=== PATIENT | female | born 1995 | race Caucasian/White ===

== ENCOUNTER 2018-12-03 14:21 | Emergency (ER) | payer MEDICAID ==
[~2018-12-03] VITALS: Ht 154.9 cm; Wt 93.2 kg
[2018-12-03 14:35] VITALS: Ht 154.9 cm; Wt 93.2 kg
[2018-12-03] MEDS ORDERED: CLEOCIN HCL300 MG PO (15:47)
[2018-12-03 16:47] VITALS: BP 149/74
== END 2018-12-03 16:47 | disposition home or self-care (01) ==
LOC: D.ER 14:21
DX: L73.2 Hidradenitis suppurativa (principal)

== ENCOUNTER 2019-01-13 15:10 | Emergency (ER) | payer MEDICAID ==
[~2019-01-13] VITALS: Ht 154.9 cm; Wt 98.6 kg
[~2019-01-13 15:10] MED LIST: CLEOCIN HCL300 MG PO
[2019-01-13 15:11] VITALS: Ht 154.9 cm; Wt 98.6 kg
[2019-01-13] MEDS ORDERED: CATAPRES0.1 MG PO (15:12)
[2019-01-13] MEDS ORDERED: ZOLOFT50 MG PO (15:12)
[2019-01-13] MEDS ORDERED: TRILEPTAL600 MG PO (15:12)
[2019-01-13 15:51] LABS: BASOPHILS 0.3 % (0-2); EOSINOPHILS 2.8 % (0-7); HEMATOCRIT 44.6 % (36.0-48.0); HEMOGLOBIN 14.9 g/dL (12-16); IMMATURE GRANULOCYTES 0.4 % (0-5); MCH 30.3 pg (26.0-34.0); MCHC 33.4 g/dL (31.0-37.0); MCV 90.7 fL (80.0-100.0); MEAN PLATELET VOLUME 10.4 fL (7.4-10.4); MONOCYTES 5.4 % (2-11); NEUTROPHILS 72.1 % (40-80); PLATELET COUNT 254 10x3/uL (130-400); RBC 4.92 10x6/uL (4.00-5.40); RDW 14.2 % (11.5-14.5); WBC 11.5 10x3/uL (4.8-10.8)
[2019-01-13 16:03] LABS: ALKALINE PHOSPHATASE 89 U/L (46-116); ALT (SGPT) 28 U/L (10-68); BILIRUBIN - TOTAL 0.18 mg/dL (0.2-1.3); CALC OSMOLALITY 275 mosm/kg (275-300); CALCIUM 8.5 mg/dL (8.5-10.1); CARBON DIOXIDE 27.9 mmol/L (21.0-32.0); CHLORIDE - SERUM 104 mmol/L (98-107); CREATININE - SERUM 0.9 mg/dL (0.6-1.3); GLUCOSE 113 mg/dL (74-106); POTASSIUM - SERUM 4.4 mmol/L (3.5-5.1); PROTEIN - SERUM 6.4 g/dL (6.4-8.2); SODIUM 138 mmol/L (136-145); UREA NITROGEN 11 mg/dL (7-18); eGFR NON AFRICAN AMERICAN 84 mL/min (90-120)
[2019-01-13 17:20] LABS: HCG URINE NEGATIVE (NEGATIVE)
[2019-01-13 17:26] LABS: APPEARANCE HAZY (CLEAR); BACTERIA MODERATE /hpf (NONE SEEN); BILIRUBIN NEGATIVE (NEGATIVE); COLOR YELLOW (YELLOW); EPITHELIAL CELLS 0-5 /hpf (0-5); GLUCOSE NEGATIVE (NEGATIVE); KETONE NEGATIVE (NEGATIVE); MUCUS >1+ /lpf (NONE SEEN); NITRITE NEGATIVE (NEGATIVE); PROTEIN NEGATIVE (NEGATIVE); SPECIFIC GRAVITY 1.025 (1.005-1.020); UROBILINOGEN NORMAL (NORMAL); WHITE CELLS - URINE 0-5 /hpf (0-5)
[2019-01-13 17:27] LABS: AMORPHOUS SEDIMENT >1+ /lpf (NONE SEEN)
[2019-01-13 18:25] VITALS: BP 115/86
== END 2019-01-13 18:26 | disposition home or self-care (01) ==
LOC: D.ER 15:10
PROVIDERS: Family Medicine
DX: R55 Syncope and collapse (principal)

== ENCOUNTER 2019-01-21 16:52 | Emergency (ER) | payer MEDICAID ==
[~2019-01-21] VITALS: Ht 154.9 cm; Wt 98.4 kg
[~2019-01-21 16:52] MED LIST changes: +CATAPRES0.1 MG PO; +TRILEPTAL600 MG PO; +ZOLOFT50 MG PO
[2019-01-21 17:00] VITALS: Ht 154.9 cm; Wt 98.4 kg
[2019-01-21] MEDS ORDERED: LISINOPRIL10 MG PO (17:03)
[2019-01-21] MEDS ORDERED: IMITREX50 MG PO (18:11)
[2019-01-21 18:24] LABS: BASOPHILS 0.5 % (0-2); EOSINOPHILS 4.6 % (0-7); HEMATOCRIT 38.6 % (36.0-48.0); HEMOGLOBIN 12.9 g/dL (12-16); IMMATURE GRANULOCYTES 0.2 % (0-5); LYMPHOCYTES 27.1 % (15-50); MCH 30.1 pg (26.0-34.0); MCHC 33.4 g/dL (31.0-37.0); MEAN PLATELET VOLUME 10.3 fL (7.4-10.4); MONOCYTES 5.9 % (2-11); NEUTROPHILS 61.7 % (40-80); PLATELET COUNT 285 10x3/uL (130-400); RBC 4.29 10x6/uL (4.00-5.40); RDW 14.1 % (11.5-14.5); WBC 9.2 10x3/uL (4.8-10.8)
[2019-01-21 18:38] LABS: ALBUMIN 3.2 g/dL (3.4-5.0); ALKALINE PHOSPHATASE 82 U/L (46-116); ALT (SGPT) 25 U/L (10-68); BILIRUBIN - TOTAL 0.23 mg/dL (0.2-1.3); CALC OSMOLALITY 275 mosm/kg (275-300); CALCIUM 8.5 mg/dL (8.5-10.1); CARBON DIOXIDE 24.4 mmol/L (21.0-32.0); CHLORIDE - SERUM 106 mmol/L (98-107); CREATININE - SERUM 0.8 mg/dL (0.6-1.3); GLUCOSE 86 mg/dL (74-106); POTASSIUM - SERUM 3.6 mmol/L (3.5-5.1); PROTEIN - SERUM 7.1 g/dL (6.4-8.2); SODIUM 139 mmol/L (136-145); UREA NITROGEN 9 mg/dL (7-18); eGFR NON AFRICAN AMERICAN > 90 mL/min (90-120)
[2019-01-21 18:46] LABS: LIPASE 161 U/L (73-393); THYROID STIMULATING HORMONE 0.04 uIU/mL (0.36-3.74)
[2019-01-21 18:47] LABS: UDS - AMPHET NEGATIVE QUAL (NEGATIVE); UDS - BARB NEGATIVE QUAL (NEGATIVE); UDS - BENZO NEGATIVE QUAL (NEGATIVE); UDS - COCAINE NEGATIVE QUAL (NEGATIVE); UDS - OPIATE NEGATIVE QUAL (NEGATIVE); UDS - PCP NEGATIVE QUAL (NEGATIVE); UDS - THC POSITIVE QUAL (NEGATIVE)
[2019-01-21 19:06] LABS: APPEARANCE CLEAR (CLEAR); BILIRUBIN NEGATIVE (NEGATIVE); COLOR YELLOW (YELLOW); GLUCOSE NEGATIVE (NEGATIVE); HCG URINE NEGATIVE (NEGATIVE); KETONE NEGATIVE (NEGATIVE); NITRITE NEGATIVE (NEGATIVE); PROTEIN NEGATIVE (NEGATIVE); UROBILINOGEN NORMAL (NORMAL)
[2019-01-21 19:47] VITALS: BP 135/74
== END 2019-01-21 19:48 | disposition home or self-care (01) ==
LOC: D.ER 16:52
PROVIDERS: Family Medicine
DX: R55 Syncope and collapse (principal); G43.909 Migraine, unspecified, not intractable, without status migrainosus

== ENCOUNTER 2019-06-04 14:37 | Inpatient (IN) | payer MEDICAID ==
[~2019-06-04] VITALS: Ht 154.9 cm; Wt 96.8 kg
[2019-06-04] VITALS (9 sets, daily range): BP systolic 133–153; BP diastolic 78–97; Ht 154.9 cm; Wt 96.8 kg
[~2019-06-04 14:37] MED LIST changes: +IMITREX50 MG PO; +LISINOPRIL10 MG PO
[2019-06-04 15:15] LABS: HEMATOCRIT 42.5 % (36.0-48.0); HEMOGLOBIN 13.8 g/dL (12-16); MCH 30.6 pg (26.0-34.0); MCHC 32.5 g/dL (31.0-37.0); MCV 94.2 fL (80.0-100.0); MEAN PLATELET VOLUME 9.2 fL (7.4-10.4); NEUTROPHILS 68.1 % (40-80); RBC 4.51 10x6/uL (4.00-5.40); RDW 12.7 % (11.5-14.5); WBC 8.2 10x3/uL (4.8-10.8)
--- NOTE | 2019-06-04 15:24 | NUR ---
URINE SPEC OBTAINED, LABELED AT BS AND SENT TO LAB
[2019-06-04 15:25] LABS: CALC OSMOLALITY 279 mosm/kg (275-300); CALCIUM 8.8 mg/dL (8.5-10.1); CARBON DIOXIDE 28.8 mmol/L (21.0-32.0); CHLORIDE - SERUM 105 mmol/L (98-107); CREATININE - SERUM 0.9 mg/dL (0.6-1.3); GLUCOSE 84 mg/dL (74-106); POTASSIUM - SERUM 3.9 mmol/L (3.5-5.1); SODIUM 142 mmol/L (136-145); UREA NITROGEN 6 mg/dL (7-18); eGFR NON AFRICAN AMERICAN 83 mL/min (90-120)
[2019-06-04 15:31] LABS: ALBUMIN 3.4 g/dL (3.4-5.0); ALKALINE PHOSPHATASE 114 U/L (46-116); ALT (SGPT) 39 U/L (10-68); BILIRUBIN - TOTAL 0.21 mg/dL (0.2-1.3); PROTEIN - SERUM 7.5 g/dL (6.4-8.2)
--- NOTE | 2019-06-04 15:32 | NUR ---
PT UNDER CONTINUOUS/DIRECT OBS WITH SITTER AT BS
[2019-06-04 15:33] LABS: HCG SERUM NEGATIVE (NEGATIVE)
[2019-06-04 15:57] LABS: PLATELET COUNT 366 10x3/uL (130-400)
[2019-06-04 16:02] LABS: UDS - AMPHET NEGATIVE QUAL (NEGATIVE); UDS - BARB NEGATIVE QUAL (NEGATIVE); UDS - BENZO NEGATIVE QUAL (NEGATIVE); UDS - COCAINE NEGATIVE QUAL (NEGATIVE); UDS - OPIATE NEGATIVE QUAL (NEGATIVE); UDS - PCP NEGATIVE QUAL (NEGATIVE); UDS - THC NEGATIVE QUAL (NEGATIVE)
[2019-06-04 16:06] LABS: APPEARANCE CLEAR (CLEAR); BILIRUBIN NEGATIVE (NEGATIVE); COLOR YELLOW (YELLOW); GLUCOSE NEGATIVE (NEGATIVE); KETONE NEGATIVE (NEGATIVE); NITRITE NEGATIVE (NEGATIVE); PROTEIN NEGATIVE (NEGATIVE); SPECIFIC GRAVITY 1.015 (1.005-1.020); UROBILINOGEN NORMAL (NORMAL)
[2019-06-04 16:08] LABS: BACTERIA FEW /hpf (NEGATIVE); EPITHELIAL CELLS OCC /hpf (0-5); WHITE CELLS - URINE 0-5 /hpf (NEGATIVE)
--- NOTE | 2019-06-04 16:10 | NUR ---
PATIENT UNABLE TO COMPLETE SUICIDE ASSESSMENT AT THIS TIME. UNABLE TO STAY AWAKE.
--- NOTE | 2019-06-04 16:58 | NUR ---
DR NAVA NOTIFIED AND SITTER ORDERED. SITTER AT BEDSIDE. NOTIFIED CHARGE NURSE AND ATTENDING IN REGARDS TO ASSESSMENT FINDINGS. RESOURCES GIVEN TO PT AND SAFETY PLAN INITIATED.
--- NOTE | 2019-06-04 17:20 | NUR ---
PATIENT CONTINUES TO REST QUIETLY, EYES CLOSED, RESP EVEN AND UNLABORED, NO S/S DISTRESS. RESOURCES FURNISHED BUT UNABLE TO REVIEW THEM WITH HER DUE TO HER CONDITION. SITTER IN PLACE.
--- NOTE | 2019-06-04 17:37 | NUR ---
RESTING IN BED WITH EYES CLOSED. AROUSES WITH VERBAL AND TACTILE STIMULATION THEN RTNS TO SLEEP. VSS. SITTER REMAINS WITH PT FOR CONTINUOUS /DIRECT OBS
--- NOTE | 2019-06-04 17:40 | NUR ---
SPOKE WITH LASHAUN AT POISON CONTROL - PT SHOULD BE MONITORED WITH CLOTH BLEACHING RANGE TENDER CHECKS, CARE SHOULD BE BASED ON SYMPTOMS, HALF LIFE IS 6-22 HOURS.
--- NOTE | 2019-06-04 17:49 | NUR ---
ATTEMPTED TO CALL REPORT, RN UNAVAILABLE, WILL CALL BACK
--- NOTE | 2019-06-04 18:07 | NUR ---
REPORT CALLED TO ANGELINA BARRIOS
--- NOTE | 2019-06-04 18:33 | NUR ---
TRANSPORTED TO ROOM#2312, CONDITION STABLE. SITTER ACCOMPANIED PT TO ROOM
[2019-06-04] MEDS ORDERED: XANAX0.5 MG PO (18:40)
--- NOTE | 2019-06-04 18:40 | NUR ---
PT RECEIVED FROM ER VSS. PT GIVEN DINNER TRAY DENIES NEEDS WILL CONTINUE TO MONITOR
--- NOTE | 2019-06-04 20:08 | NUR ---
PT ASSISTED TO BEDSIDE COMMODE. 150 CC VOID NOTED. WILL CONTINUET O MONITOR
--- NOTE | 2019-06-04 23:15 | NUR ---
REASSESSMENT COMPLETE PER FLOW SHEET. VSS. NO NEW CHANGES WILL CONTINUE TO MONITOR
[2019-06-05] VITALS (12 sets, daily range): BP systolic 94–158; BP diastolic 50–114
--- NOTE | 2019-06-05 03:03 | NUR ---
REASSESSMENT COMPLETE PER FLOW SHEET. VSS. NO NEW CHANGES WILL CONTINUE TO MONITOR
[2019-06-05 05:01] LABS: HEMATOCRIT 40.8 % (36.0-48.0); HEMOGLOBIN 13.3 g/dL (12-16); LYMPHOCYTES 41.4 % (15-50); MCH 30.6 pg (26.0-34.0); MCHC 32.6 g/dL (31.0-37.0); MEAN PLATELET VOLUME 9.6 fL (7.4-10.4); NEUTROPHILS 48.2 % (40-80); PLATELET COUNT 325 10x3/uL (130-400); RBC 4.34 10x6/uL (4.00-5.40); RDW 13.2 % (11.5-14.5); WBC 6.7 10x3/uL (4.8-10.8)
[2019-06-05 05:04] LABS: ALKALINE PHOSPHATASE 99 U/L (46-116); ALT (SGPT) 36 U/L (10-68); BILIRUBIN - TOTAL 0.17 mg/dL (0.2-1.3); CALC OSMOLALITY 278 mosm/kg (275-300); CALCIUM 8.5 mg/dL (8.5-10.1); CARBON DIOXIDE 28.2 mmol/L (21.0-32.0); CHLORIDE - SERUM 108 mmol/L (98-107); CREATININE - SERUM 0.8 mg/dL (0.6-1.3); GLUCOSE 88 mg/dL (74-106); MAGNESIUM - SERUM 2.1 mg/dL (1.8-2.4); PHOSPHOROUS 3.6 mg/dL (2.5-4.9); POTASSIUM - SERUM 4.1 mmol/L (3.5-5.1); PROTEIN - SERUM 6.8 g/dL (6.4-8.2); SODIUM 142 mmol/L (136-145); THYROID STIMULATING HORMONE 0.42 uIU/mL (0.36-3.74); eGFR NON AFRICAN AMERICAN > 90 mL/min (90-120)
[2019-06-05 05:14] LABS: UREA NITROGEN 4 mg/dL (7-18)
--- NOTE | 2019-06-05 08:02 | NUR ---
LYING IN BED AT THIS TIME. AWAKE. PT ANSWERS QUESTIONS APPROPIATELY. PT STATES SHE IS TIRED OF "ALL THIS STUFF" AND THAT SHE IS "READY TO GET OUT OF HERE." VSS. PT STATES SHE IS NOT CURRENTLY SUICIDAL, BUT IS READY TO GET OUT OF HERE. WILL CONTINUE PLAN OF CARE.
--- NOTE | 2019-06-05 10:03 | NUR ---
RESTING IN BED WITH EYES CLOSED AT THIS TIME. VSS. PT AWAKENS WHEN SPOKEN TO. CALL LIGHT IN REACH. SITTER IN ROOM. WILL CONTINUE PLAN FO CARE.
--- NOTE | 2019-06-05 12:04 | NUR ---
NO ACUTE DISTRESS NOTED. NO CHANGE. PT RESTING IN BED, RESPIRATIONS STEADY AND UNLABORED. PT AWAKENS WHEN SPOKEN TO. DENIES ANY NEEDS. CALL LIGHT IN REACH. WILL CONTINUE PLAN FO CARE.
--- NOTE | 2019-06-05 14:14 | NUR ---
PT TEARFUL AT THIS TIME STATING SHE DOESN'T WANT TO BE HERE AND THAT "BEING HERE IS NOT HELPING." SHE IS SPEAKING WITH PHYSICIANS. SITTER IN ROOM. PT ALSO NOTIFIED STAFF AND PHYSICIAN THAT SHE IS A RECOVERING DRUG ADDICT AND BOUGHT THE XANAX FROM SOMEONE. VSS. WAITING FOR [facility] PHYSICIAN TO COME SEE HER. WILL CONTINUE PLAN OF CARE.
--- NOTE | 2019-06-05 14:20 | NUR ---
PT IS RESTLESS AND VERBALLY AGGRESSIVE. SHE IS ANXIOUS AND STATES, "I FEEL LIKE I AM COMING OUT OF MY SKIN." DENIES SI. ADMITS TO TAKING 7 XANAX AND HAVING A HX OF DRUG ABUSE. SITTER AT BEDSIDE. PT IS OPEN TO PLACEMENT IF NEEDED.
--- NOTE | 2019-06-05 14:22 | NUR ---
PER DR ROSSI, SALINE LOCK IV, AND OKAY TO TRANSFER TO FLOOR IF WILL HAVE A SITTER ON THE FLOOR. VSS. WILL CONTINUE PLAN OF CARE.
--- NOTE | 2019-06-05 16:50 | NUR ---
PER DR DOCKERY; PT NEEDS INPATIENT PSYCH PLACEMENT. OKAY TO TRANSFER TO FLOOR. VSS. STILL NEEDS SITTER. WILL CONTINUE PLAN OF CARE.
--- NOTE | 2019-06-05 16:54 | NUR ---
BED BATH (CHG) OFFERED; PT REFUSED.
--- NOTE | 2019-06-05 18:13 | NUR ---
NO ACUTE DISTRESS NOTED. NO CHANGE. VSS. WILL CONTINUE PLAN OF CARE.
--- NOTE | 2019-06-05 19:00 | NUR ---
BEDSIDE REPORT RECEIVED, PT CARE ASSUMED. INTRODUCED SELF AND WROTE NAME ON BOARD. PT LYING IN BED, WATCHING TV, AAOX4. DENIES SI, PAIN, OR ANY OTHER NEEDS AT THIS TIME. BED IN LOWEST POSITION, SR X1, CALL LIGHT WITHIN REACH. TECH AT BEDSIDE. WILL CONTINUE TO MONITOR.
[2019-06-05 20:00] LABS: HCG URINE NEGATIVE (NEGATIVE)
--- NOTE | 2019-06-05 20:00 | NUR ---
CAROLYN BENNETT STATED WAS ACCEPTING PT. REPORT GIVEN TO ANAND ALFARO. HOUSE SUP PAGED GIVEN UDPATE. R JEAN REBOLLEDO D.C.'D
--- NOTE | 2019-06-05 20:53 | NUR ---
PT LEAVING UNIT WITH [facility] VIA STRETCHER.
--- NOTE | 2019-06-06 15:57 | CN ---
PATIENT NAME:JACOB CABRERA MEDICAL RECORD: [id number] : [birth year] LOCATION:[id number] ADMIT DATE: 06/05/19 ACCOUNT: [id number] CONSULTING PHYSICIAN: LIZZ NAVA MD REFERRING PHYSICIAN: RONALD ROSSI MD DATE OF CONSULTATION: 06/05/2019 IDENTIFYING DATA: The patient is 24 years old and she is admitted to the hospital on a voluntary basis secondary to an overdose. CHIEF COMPLAINT: Depression. HISTORY OF PRESENT ILLNESS: The patient says she took 7 Xanax tablets, but her urine drug screen in the Emergency Room is negative for benzodiazepines. She says she is pretty sure it was Xanax, but perhaps she is mistaken. She does have a long history of polysubstance abuse. She endorses numerous neurovegetative depressive symptoms and indicates that she has difficulty functioning. She endorses depressive symptoms and tells me that she has been diagnosed with bipolar disorder in the past. ASSESSMENT: 1. Status post overdose, unknown substance. 2. Bipolar disorder, depressed phase by history. 3. History of polysubstance abuse. PLAN: At this time, the patient is endorsing depressive symptoms and is equivocal about wanting to hurt herself. She tried to hurt herself yesterday even though it appears she did not take which she believes she took. It is my opinion that her symptoms merit inpatient psychiatric stabilization and she is willing to go to an inpatient facility on a voluntary basis. I would recommend she be transferred as soon as it is practical to do so. TRANSINT:[id number] Voice Confirmation ID: [id number] DOCUMENT ID: [id number] LIZZ NAVA MD at 1557 CC: [id number] DICTATION DATE: 06/05/19 1701 BOILER TUBE BLOWER: 06/05/19 1825 DIS IN 06/05/19 [address] [place] [address]
--- NOTE | 2019-06-06 17:31 | MORECARE ---
CASE MANAGEMENT DISCHARGE SUMMARY PATIENT: JACOB CABRERA UNIT: [id number] ADM DATE: 06/05/19 AGE: 24 : [birth year] SEX: F ROOM/BED: D.2312 AUTHOR: MARITA RÍOS PHYSICIAN: REFERRING PHYSICIAN: RONALD ROSSI MD DATE OF SERVICE: 06/06/19 Discharge Plan Patient Name: JACOB CABRERA [facility] [facility] 1995 Planned Disposition: Psych facility Anticipated Discharge Date: Discharge Date: 06/05/2019 Expected LOS: Initial Reviewer: [email or web address] Initial Review Date: 06/05/2019 Generated: 06/06/19 6:30 pm Comments DCP- Discharge Planning Updated by [email or web address]: Yarelis Delgadillo on 06/06/19 4:[address] LATE ENTRY 06/05/19 CM met with patient and he is willing to go voluntarily to inpatient psych facility. CM called and faxed transfer center for transfer to psych. CM will continue to follow and assist as needed with discharge planning / needs. External Providers External Provider: [facility] Next Contact Date: Service Request Date: Service Type: Resolution: Reviewer: Comments: Patient Name: JACOB CABRERA Page [phone] at [id number] All edits/amendments must be made on the electronic document DICTATION DATE: 06/06/191729 DATABASE SPECIALIST: TYE 06/06/191729 RPT#: [id number] DC DATE:06/05/19 STATUS: DIS IN [facility] [address] [place] [address] END OF REPORT
== END 2019-06-05 20:54 | disposition short-term general hospital (02) | DRG 918 ==
LOC: D.ER 14:37 → D.CVICU 16:27 → D.ICU 16:27 → OBSVTIME 17:29 → D.ICU 17:37
PROVIDERS: Family Medicine; ADMIT Internal Medicine Nephrology; ATTEND Internal Medicine Nephrology
DX: T42.4X2A Poisoning by benzodiazepines, intentional self-harm, initial encounter (principal); Z68.41 Body mass index [BMI] 40.0-44.9, adult; E66.01 Morbid (severe) obesity due to excess calories; I10 Essential (primary) hypertension; F41.8 Other specified anxiety disorders; F31.9 Bipolar disorder, unspecified; Z91.14 Patient's other noncompliance with medication regimen; Z72.0 Tobacco use